=== PATIENT | male | born 1985 | race Caucasian/White ===

== ENCOUNTER 2016-05-04 23:30 | Emergency (ER) | payer BC ==
--- NOTE | ~2016-05-04 | CR93 ---
[facility] A Service [facility] RADIOLOGY TEXT RESULTS PATIENT: CORBY LUNA LOCATION: SED : 83 UNIT #: [id number] AGE: [address]: JESSA DAIVLA SEX: M ORDER DR: [id number] [place] [id number] E MR#: [id number] Acc #: [id number] NAME: CORBY LUNA. : 1985 SEX: M STUDY DATE/TIME: 05/04/2016 23:37 UNIT: SED ROOM: STUDY DESCRIPTION: CR Elbow Min 3 Views Lt Attending Physician: Jessa Davila Ordering Physician: Physician Non-Staff MEDICAL IMAGING REPORT This report is preliminary unless electronic signature is present. EXAM Left elbow series, 05/04/2016. HISTORY 30-year-old male in the ED complaining of 1-2 week history of left elbow pain and swelling. No reported acute injury. TECHNIQUE 3-view left elbow series. FINDINGS The exam shows soft tissue swelling in the region of the olecranon bursa. In the absence of trauma, the findings suggest potential olecranon bursitis, correlate clinically. No visible soft tissue gas or radiopaque soft tissue foreign body. Osseous structures of the elbow are negative. No visible joint effusion. IMPRESSION Posterior olecranon soft tissue swelling. Left elbow series is otherwise negative. Dictated by... Vel Crespo M.D. THIS IS AN ELECTRONICALLY VERIFIED REPORT Vel Crespo M.D. at 05/09/2016 5:00 PM JEFF/sergio TD: 05/05/2016 07:29 JOB #: [id number] [facility] A Service [facility] RADIOLOGY TEXT RESULTS PATIENT: CORBY LUNA LOCATION: SED : 84 UNIT #: [id number] AGE: [address]: JESSA DAVILA SEX: M ORDER DR: MEDICAL IMAGING REPORT Page 1 of 1
[~2016-05-04 23:30] MED LIST: AMOXICILLIN PO; AMOXICILLIN500 M1 PO; AUGMENTIN250 MG/5 M PO; CHANTIX1 MG BC; EFFEXOR-XR75 MG PO; LEXAPRO PO; LIDOCAINE HC20 MG/M1 PO; NAPROXEN PO; NO MEDICATIONS; OXYCODONE HCL5 M1 PO; PEN-VEE K PO; PREDNISOLO15 MG/5 ML PO; PREDNISONE PO; PREDNISONE5 MG/5 ML PO; ROXICET 5/325 SO5 ML PO; TORADOL10 MG PO; ULTRAM PO; VICODIN 5/500 T1 TAB PO
== END 2016-05-05 00:41 | disposition home or self-care (01) ==
LOC: SED 23:30
DX: M70.22 Olecranon bursitis, left elbow (principal); I10 Essential (primary) hypertension; F17.210 Nicotine dependence, cigarettes, uncomplicated; Z79.899 Other long term (current) drug therapy
CPT/HCPCS: 29260; 73080; 99283